=== PATIENT | female | born 1950 | race African-American/Black ===

== ENCOUNTER → 2016-12-15 | Outpatient (CLI) | payer MEDICARE, BC ==
[2015-06-22 15:48] VITALS: BP 166/115
[~2016-12-15] MED LIST: AZEL137S3 NS; BENZ100C2 PO; CLOP75TA27 PO; CYAN100031 PO; DILT180C29 PO; DOCU100C5 PO; FLUT1DIS IH; GLUC1TAB71 PO; HYDR-2869 PO; LABE100T3 PO; LAMO50TA3 PO; LECI400C PO; LORA0.5T PO; LOSA100T6 PO; OMEP40CA5 PO; PANT40TA3 PO; VITA1TAB49 PO
--- NOTE | 2016-12-15 15:29 | KCIC ---
CHEST, TWO VIEWS, 12/15/2016: History: Chronic cough, asthma Comparison is made to a study from 03/31/2016. The heart is enlarged. There is tortuosity of the thoracic aorta. The pulmonary vascularity is normal. No pulmonary infiltrate is seen. There is unchanged blunting of the costophrenic angles on the right. No left-sided pleural fluid is seen. IMPRESSION: 1. Cardiomegaly and aortic ectasia. 2. Unchanged blunting of the costophrenic angles on the right compatible with scarring versus a small amount of chronic or recurrent pleural fluid. Electronically signed by: Gerald Weinberg MD (Dec 15, 2016 15:27:55)
== END | disposition home or self-care (01) ==
LOC: KCIC 13:44
PROVIDERS: ATTEND Allergy & Immunology
DX: J45.909 Unspecified asthma, uncomplicated (principal)
CPT/HCPCS: 71020